=== PATIENT | female | born 1995 | race African-American/Black ===

== ENCOUNTER 2016-10-22 19:50 | Outpatient (CLI) | payer MEDICAID, OTHER ==
[~2016-10-22] VITALS: Ht 160 cm; Wt 85.7 kg
[2016-10-22 20:13] VITALS: BP 139/85
[2016-10-22] MEDS ORDERED: FERR-84 PO (20:50)
[2016-10-22] MEDS ORDERED: PREN1TAB19 PO (20:50)
--- NOTE | 2016-10-23 07:53 | Physician Query-Final Dx ---
ARIN SEGURA 10/23/16 0753: Clinic Account Progress/Dx Physician Query: Please give diagnosis Date of Service Oct 22, 2016 at 19:50 CELSO PINEDA DO 10/26/16 0800: Clinic Account Progress/Dx DIAGNOSIS: Diagnosis 39 week iup Pelvic pressure ARIN SEGURA Oct 23, 2016 07:53 CELSO PINEDA DO Oct 26, 2016 08:00
[2016-10-23] MEDS ORDERED: IBUP-1773 PO (13:59)
[2016-10-23] MEDS ORDERED: DOCU-143 PO (13:59)
== END 2016-10-22 21:50 | disposition home or self-care (01) ==
LOC: WSo 19:50 → LDRP 19:50 → WSo 21:50
PROVIDERS: ATTEND Obstetrics & Gynecology
DX: O99.89 Other specified diseases and conditions complicating pregnancy, childbirth and the puerperium (principal); R10.2 Pelvic and perineal pain; Z3A.39 39 weeks gestation of pregnancy
CPT/HCPCS: 99213

== ENCOUNTER 2016-10-23 05:32 | Inpatient (IN) | payer MEDICAID ==
[~2016-10-23] VITALS: Ht 160 cm; Wt 84.8 kg
[2016-10-23] VITALS (21 sets, daily range): BP systolic 119–157; BP diastolic 65–93
[~2016-10-23 05:32] MED LIST: FERR-84 PO; PREN1TAB19 PO
[2016-10-23] MEDS ORDERED: D5 LR IV SOLUTION 1,000 ML IV ONE (07:39)
[2016-10-23] MEDS ORDERED: MINERAL OIL CONCENTRATE 99.9% 15 ML UDC TOP PRN (07:45)
[2016-10-23] MEDS: D5 LR IV SOLUTION 1,000 ML IV SCH ×2 (07:50→13:11)
[2016-10-23 08:20] LABS: BASOPHILS % (AUTO) 0 % (0-10); EOSINOPHILS % (AUTO) 0 % (0-10); LYMPHOCYTES # (AUTO) 0.9 X 10^3 (1.0-4.0); LYMPHOCYTES % (AUTO) 9 % (12-44); MEAN CORPUSCULAR HEMOGLOBIN 28 PG (25-34); MEAN CORPUSCULAR HGB CONC 33 G/DL (32-36); MEAN CORPUSCULAR VOLUME 85 FL (80-99); MEAN PLATELET VOLUME 12.8 FL (7.4-10.4); MONOCYTES # (AUTO) 0.5 X 10^3 (0.0-1.0); MONOCYTES % (AUTO) 4 % (0-12); NEUTROPHILS # (AUTO) 8.7 X 10^3 (1.8-7.8); NEUTROPHILS % (AUTO) 86 % (42-75); PLATELET COUNT 195 10^3/uL (130-400); RED BLOOD COUNT 4.41 10^6/uL (4.35-5.85); RED CELL DISTRIBUTION WIDTH 13.3 % (10.0-14.5); WHITE BLOOD COUNT 10.2 10^3/uL (4.3-11.0)
[2016-10-23] MEDS ORDERED: SUFENTA 0.6MCG/ML BUPIVA 0.125 100 ML ONE (08:59)
[2016-10-23] MEDS ORDERED: fentaNYL INJECTION 100 MCG/2 ML AMP ONE (09:10)
[2016-10-23] MEDS ORDERED: LIDOCAINE PF 2% 10 ML (XYLOCAINE) AMP ONE (09:11)
[2016-10-23] MEDS ORDERED: BUPIVACAINE 0.25% 30 ML (SENSORCAINE) VIAL ONE (09:11)
--- NOTE | 2016-10-23 09:37 | History & Physical-OB ---
OB - Chief Complaint & HPI Date Date of Admission: Date of Admission: Oct 23, 2016 at 07:05 Chief Complaint/History OB-Reason for Admission/Chief: Onset of Labor Hx : 1 Hx Para: 0 Expected Date of Delivery: Oct 25, 2016 Gestational Age in Weeks: 39 Gestational Age in Days: 5 Other reason for admission: 21 y/o G1 @ 39w5d L=13 here with ctx. Was in last night for bleeding/ctx and no cervical change made, d/c home by Dr. Adame (1/70% at that time with no change). This AM, 2/100% on presentation with BBOW. Desires epidural. Fetus active, no LOF. c/b h/o chlamydia but neg in and anemia (10.4) on iron. Otherwise uncomplicated. History of Labs B+ Antibody neg RI Hep B/C neg/neg RPR NR HIV neg GC/CT neg/neg (x2, once in first trim and once in third) TSH normal Declined genetic screening GBS neg Allergies and Home Medications Allergies Coded Allergies: Penicillins (Verified Allergy, Unknown, 10/23/16) amoxicillin (Verified Allergy, Unknown, 10/23/16) ceftriaxone (Verified Allergy, Unknown, 10/23/16) Home Medications Ferrous Sulfate 325 Mg Tablet, 325 MG PO DAILY, (Reported) Vit/Iron Fumarate/FA 1 Each Tablet, 1 EACH PO DAILY, (Reported) OB - History Hx of Present Care: Yes Ultrasounds: Normal mid trimester US Obstetrical Complications: Other (anemia 10.1 on iron) Medical Complications: Other (h/o chlamydia as above) Information Induced Hypertension: No Maternal Gestational Diabetes: No Hemorrhage: No Obstetrical History Hx : 1 Hx Para: 0 Patient Past Medical History see above Social History/Family History HIV/AIDS: No Recent Infectious Disease Expo: No Sexually Transmitted Disease: No Alcohol Use: Denies Use Recreational Drug Use: No Smoking Cessation: Former smoker 2nd Hand Smoke Exposure: No Immunizations Hepatitis A: No Hepatitis B: No Tetanus Booster (TDap): Less than 5yrs (08/26/16) Rubella: immune RPR/VDRL: Negative GBS Status: Negative HBsAG: Negative OB - Admission Exam Physical Exam Vitals: see nursing documentation HEENT: NCAT Heart: Rhythm Normal Lungs: Clear Abdomen: Gravid Extremities: Normal Reflexes: Normal Cervical Dilatation: 4cm Effacement: 100% Station: -2 Membranes: Ruptured Amniotic Fluid: Clear Heart Rate: 140's Accelerations: Accelerations Present Short Term Variability: Present 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 Variability: Average (6-25) Contractions on Admission: 6-10 Minutes Apart Labs Laboratory Tests Test 10/23/16 08:10 Range/Units White Blood Count 10.2 4.3-11.0 10^3/uL Red Blood Count 4.41 4.35-5.85 10^6/uL Hemoglobin 12.3 11.5-16.0 G/DL Hematocrit 38 35-52 % Mean Corpuscular Volume 85 80-99 FL Mean Corpuscular Hemoglobin 28 25-34 PG Mean Corpuscular Hemoglobin Concent 33 32-36 G/DL Red Cell Distribution Width 13.3 10.0-14.5 % Platelet Count 195 130-400 10^3/uL Mean Platelet Volume 12.8 H 7.4-10.4 FL Neutrophils (%) (Auto) 86 H 42-75 % Lymphocytes (%) (Auto) 9 L 12-44 % Monocytes (%) (Auto) 4 0-12 % Eosinophils (%) (Auto) 0 0-10 % Basophils (%) (Auto) 0 0-10 % Neutrophils # (Auto) 8.7 H 1.8-7.8 X 10^3 Lymphocytes # (Auto) 0.9 L 1.0-4.0 X 10^3 Monocytes # (Auto) 0.5 0.0-1.0 X 10^3 Eosinophils # (Auto) 0.0 0.0-0.3 10^3/uL Basophils # (Auto) 0.0 0.0-0.1 10^3/uL OB - Assessment/Plan/Diagnosis Plan Other Plan 21 y/o G1 @ 39w5d by L=13 with active labor, GBS neg H/o chlamydia outside of , neg on intake Rh+ RI Expectant management AROM clear ASVD Peds BRITANY Morejon MD Oct 23, 2016 09:37
[2016-10-23] MEDS ORDERED: LACTATED RINGERS 1,000 ML IV SCH (09:38)
[2016-10-23] MEDS ORDERED: ONDANSETRON 4 MG/2 ML (SDV) Z0FRAN IV PRN (09:45)
[2016-10-23] MEDS ORDERED: EPIDURAL (SUFENTA 0.6MCG/ML BUPIVA 0.125%) 100 ML BAG EPI PRN (09:45)
[2016-10-23] MEDS ORDERED: diphenhydrAMINE 50 MG/ML INJ (BENADRYL) IV PRN (09:45)
[2016-10-23] MEDS ORDERED: NALOXONE 0.4 MG/ML 1 ML (NARCAN) VIAL IV PRN (09:45)
[2016-10-23 10:33] LABS: BILIRUBIN,URINE NEGATIVE (NEGATIVE); KETONES,URINE NEGATIVE (NEGATIVE); LEUKOCYTE ESTERASE ,URINE NEGATIVE (NEGATIVE); NITRITE,URINE NEGATIVE (NEGATIVE); PH,URINE 7 (5-9); PROTEIN,URINE NEGATIVE (NEGATIVE); UROBILINOGEN,URINE NORMAL (NORMAL)
[2016-10-23 10:43] LABS: WBC,URINE 0-2 /HPF
[2016-10-23] MEDS ORDERED: OXYTOCIN/NORMAL SALINE 500 ML IV SCH ×2 (11:47→14:12)
[2016-10-23] MEDS ORDERED: LIDOCAINE/EPI 1%-1:200,000 (XYLOCAINE) 30 ML VIAL ONE (11:50)
--- NOTE | 2016-10-23 13:56 | OB Labor & Delivery Record ---
Vag Delivery Note Vag Delivery Note Date of Delivery: 10/23/16 Preoperative Diagnosis: Pamela Barajas is a 21 y/o G1 @ 39w5d with active labor, GBS neg Postoperative Diagnosis: Same Surgeon: Britany Yun MD Anesthesia: Epidural Delivery Type: Spontaneous vaginal delivery Findings: Viable female , apgars 9/9, weight 6lb4oz Lacerations: right periclitoral abrasion, repaired Intact placenta with 3 vessel cord. Nuchal cord x 2, no body cord or shoulder dystocia Estimated Blood Loss: 300 ml Complications: None Condition: Stable Description of Procedure: The patient is a 21 y/o G1 @ 39w5d who presented in active labor. She was admitted and informed consent was obtained. Her labor course was remarkable for AROM with clear fluid, epidural for analgesia, and pitocin for augmentation of labor. The fetus was noted to be in occiput posterior position at 4-5cm and position changes were utilized t rotate the fetus which were successful. She progressed to complete dilatation and began to push. She was then set up for delivery. The infant's head was delivered atraumatically in the occiput anterior position. The shoulders and remainder of the infant's body were then delivered without difficulty. The was placed on her mother's chest crying vigorously. The cord was doubly clamped and cut after a pause of 30-60 seconds. An intact placenta with 3-vessel cord delivered via Marc and there was found to be minimal bleeding. Vigorous fundal massage was performed and the fundus was found to be firm. IV oxytocin was given. Examination of the vagina and perineum revealed a small right sided periclitoral abrasion repaired in the usual fashion with 4-0 vicryl suture. Following the repair, sponge, instrument and needle counts were correct. Mom and baby were both in stable condition in the labor suite. Vitals - Labs Labs Laboratory Tests 10/23/16 06:00: Urine Color YELLOW, Urine Clarity CLEAR, Urine pH 7, Urine Specific [place] 1.005L, Urine Protein NEGATIVE, Urine Glucose (UA) NEGATIVE, Urine Ketones NEGATIVE, Urine Nitrite NEGATIVE, Urine Bilirubin NEGATIVE, Urine Urobilinogen NORMAL, Urine Leukocyte Esterase NEGATIVE, Urine RBC (Auto) 2+H, Urine RBC RARE , Urine WBC 0-2, Urine Squamous Epithelial Cells 5-10, Urine Crystals NONE, Urine Bacteria NEGATIVE, Urine Casts NONE, Urine Mucus NEGATIVE, Urine Culture Indicated NO 10/23/16 08:10: White Blood Count 10.2, Red Blood Count 4.41, Hemoglobin 12.3, Hematocrit 38, Mean Corpuscular Volume 85, Mean Corpuscular Hemoglobin 28, Mean Corpuscular Hemoglobin Concent 33, Red Cell Distribution Width 13.3, Platelet Count 195, Mean Platelet Volume 12.8H, Neutrophils (%) (Auto) 86H, Lymphocytes (%) (Auto) 9L, Monocytes (%) (Auto) 4, Eosinophils (%) (Auto) 0, Basophils (%) (Auto) 0, Neutrophils # (Auto) 8.7H, Lymphocytes # (Auto) 0.9L, Monocytes # (Auto) 0.5, Eosinophils # (Auto) 0.0, Basophils # (Auto) 0.0 BRITANY YUN MD Oct 23, 2016 13:56
[2016-10-23] MEDS ORDERED: IBUP-1773 PO (13:59)
[2016-10-23] MEDS ORDERED: DOCU-143 PO (13:59)
[2016-10-23] MEDS ORDERED: CATHETER FLUSH 10 ML SYR IV SCH ×2 (14:00→22:00)
--- NOTE | 2016-10-23 14:00 | Discharge Inst-Women's Service ---
Discharge Inst-Women's Serv Depart Medication/Instructions New, Converted or Re-Newed RX: RX on Chart Final Diagnosis Active labor, TIUP, Consults/Follow Up Additional Follow Up: Yes Orders/Referrals [address] Garcia Activity Activity: Activity as Tolerated Driving Instructions: You May Drive NO SMOKING: NO SMOKING Nothing Inside Vagina: No Douching, No [place], No Tampons Diet Discharge Diet: No Restrictions Symptoms to Report to : Bleeding Excessive, Pain Increased, Fever Over 101 Degrees F, Pain/Pressure in Chest, Vaginal Bleeding Increase, Dizziness/Fainting , Nausea/Vomiting, Shortness of Breath For Any Problems or Questions: Contact Your Physician BRITANY GARCIA MD Oct 23, 2016 14:00
[2016-10-23] MEDS ORDERED: BENZOCAINE/MENTHOL (DERMOPLAST) 56 ML CAN TP PRN (14:15)
[2016-10-23] MEDS ORDERED: WITCH HAZEL(TUCKS) 40 EA JAR TOP PRN (14:15)
[2016-10-23] MEDS ORDERED: MEASLES,MUMPS,RUBELLA 1 EA INJ SQ ONE (14:15)
[2016-10-23] MEDS: IBUPROFEN 600 MG (MOTRIN) TAB PO SCH ×2 (16:33→21:47)
[2016-10-23] MEDS: DOCUSATE SODIUM 100 MG (COLACE) CAP PO SCH (21:47)
[2016-10-24] VITALS: BP 118/69
[2016-10-24 04:34] VITALS: BP 105/67
[2016-10-24] MEDS: IBUPROFEN 600 MG (MOTRIN) TAB PO SCH ×3 (04:49→18:15)
[2016-10-24 05:54] LABS: BASOPHILS % (AUTO) 0 % (0-10); EOSINOPHILS % (AUTO) 0 % (0-10); LYMPHOCYTES % (AUTO) 16 % (12-44); MEAN CORPUSCULAR HEMOGLOBIN 28 PG (25-34); MEAN CORPUSCULAR HGB CONC 33 G/DL (32-36); MEAN CORPUSCULAR VOLUME 86 FL (80-99); MEAN PLATELET VOLUME 12.8 FL (7.4-10.4); MONOCYTES # (AUTO) 1.1 X 10^3 (0.0-1.0); MONOCYTES % (AUTO) 9 % (0-12); NEUTROPHILS # (AUTO) 9.6 X 10^3 (1.8-7.8); NEUTROPHILS % (AUTO) 76 % (42-75); PLATELET COUNT 168 10^3/uL (130-400); RED BLOOD COUNT 3.92 10^6/uL (4.35-5.85); RED CELL DISTRIBUTION WIDTH 13.3 % (10.0-14.5); WHITE BLOOD COUNT 12.7 10^3/uL (4.3-11.0)
[2016-10-24] MEDS ORDERED: PRENATAL VITAMIN 1 EA TAB PO SCH (07:00)
[2016-10-24 08:25] VITALS: BP 133/78
--- NOTE | 2016-10-24 08:31 | Postpartum Progress Note ---
Note Note Day # 1 Subjective: Patient is without complaints. Ambulating, voiding. Tolerating a regular diet without nausea or vomiting. Normal lochia. Pain is well controlled with oral pain medications. Breast feeding. Thinks she would like to dc later tonight. Objective: VS - Last 72 Hours, by Label 10/23/16 10/23/16 10/23/16 10/23/16 05:58 08:00 09:30 10:00 Temp 98.6 98.1 Pulse 104 100 105 Resp 18 20 20 B/P (MAP) 136/81 138/91 146/78 O2 Delivery Room Air 10/23/16 10/23/16 10/23/16 10/23/16 10:30 11:00 11:30 12:00 Pulse 90 106 104 Resp 20 20 20 20 B/P (MAP) 134/82 127/73 128/73 10/23/16 10/23/16 10/23/16 10/23/16 12:15 12:30 12:45 13:00 Pulse 102 96 106 Resp 20 20 20 20 B/P (MAP) 128/78 134/84 141/85 O2 Delivery Non Rebreather Non Rebreather O2 Flow Rate 15.00 15.00 10/23/16 10/23/16 10/23/16 10/23/16 13:15 13:30 13:39 13:52 Temp 98.7 Pulse 103 111 109 Resp 20 20 18 18 B/P (MAP) 150/93 157/88 148/78 153/77 O2 Delivery Non Rebreather Non Rebreather O2 Flow Rate 15.00 15.00 10/23/16 10/23/16 10/23/16 10/23/16 14:23 14:25 14:38 14:52 Pulse 93 96 96 Resp 18 18 18 18 B/P (MAP) 143/65 151/68 131/78 10/23/16 10/23/16 10/23/16 10/23/16 15:07 15:18 16:33 20:00 Temp 97.9 98.1 97.9 Pulse 107 94 120 77 Resp 18 18 20 18 B/P (MAP) 147/72 136/68 127/77 119/74 Pulse Ox 100 O2 Delivery Room Air 10/23/16 10/24/16 10/24/16 22:20 00:00 04:34 Temp 97.9 98.4 96.8 Pulse 77 94 91 Resp 18 16 16 B/P (MAP) 119/74 118/69 105/67 Pulse Ox 100 94 97 O2 Delivery Room Air Room Air Room Air Physical Exam: General - Alert and oriented, no apparent distress Abdomen - Soft, appropriately tender to palpation, non-distended, fundus firm at umbilicus Extremities - no edema, negative Tom's bilaterally Laboratory Tests Test 10/24/16 05:37 Range/Units White Blood Count 12.7 H 4.3-11.0 10^3/uL Red Blood Count 3.92 L 4.35-5.85 10^6/uL Hemoglobin 11.1 L 11.5-16.0 G/DL Hematocrit 34 L 35-52 % Mean Corpuscular Volume 86 80-99 FL Mean Corpuscular Hemoglobin 28 25-34 PG Mean Corpuscular Hemoglobin Concent 33 32-36 G/DL Red Cell Distribution Width 13.3 10.0-14.5 % Platelet Count 168 130-400 10^3/uL Mean Platelet Volume 12.8 H 7.4-10.4 FL Neutrophils (%) (Auto) 76 H 42-75 % Lymphocytes (%) (Auto) 16 12-44 % Monocytes (%) (Auto) 9 0-12 % Eosinophils (%) (Auto) 0 0-10 % Basophils (%) (Auto) 0 0-10 % Neutrophils # (Auto) 9.6 H 1.8-7.8 X 10^3 Lymphocytes # (Auto) 2.0 1.0-4.0 X 10^3 Monocytes # (Auto) 1.1 H 0.0-1.0 X 10^3 Eosinophils # (Auto) 0.0 0.0-0.3 10^3/uL Basophils # (Auto) 0.0 0.0-0.1 10^3/uL Assessment: 21 y/o post- day # 1, status post spontaneous vaginal delivery. Recovering well, hemodynamically stable Rh+ BPs elevated peripartum but normalized since delivery, no si/sx pre-eclampsia Plan: Routine care. Encourage breast feeding. Encourage ambulation. Plan for discharge today vs tomorrow. Vitals - Labs Vital Signs - I&O Vital Signs Date Time Temp Pulse Resp B/P (MAP) Pulse Ox O2 Delivery O2 Flow Rate FiO2 10/24/16 04:34 96.8 91 16 105/67 97 Room Air 10/24/16 00:00 98.4 94 16 118/69 94 Room Air 10/23/16 22:20 97.9 77 18 119/74 100 Room Air 10/23/16 20:00 97.9 77 18 119/74 100 Room Air 10/23/16 16:33 98.1 120 20 127/77 10/23/16 15:18 97.9 94 18 136/68 10/23/16 15:07 107 18 147/72 10/23/16 14:52 96 18 131/78 10/23/16 14:38 96 18 151/68 10/23/16 14:25 18 10/23/16 14:23 93 18 143/65 10/23/16 13:52 109 18 153/77 10/23/16 13:39 98.7 111 18 148/78 10/23/16 13:30 20 157/88 Non Rebreather 15.00 10/23/16 13:15 103 20 150/93 Non Rebreather 15.00 10/23/16 13:00 106 20 141/85 Non Rebreather 15.00 10/23/16 12:45 96 20 134/84 Non Rebreather 15.00 10/23/16 12:30 102 20 128/78 10/23/16 12:15 20 10/23/16 12:00 20 10/23/16 11:30 104 20 128/73 10/23/16 11:00 106 20 127/73 10/23/16 10:30 90 20 134/82 10/23/16 10:00 105 20 146/78 10/23/16 09:30 100 20 138/91 I & O 10/24/16 07:00 Intake Total 2175 ml Balance 2175 ml Labs Laboratory Tests 10/24/16 05:37: White Blood Count 12.7H, Red Blood Count 3.92L, Hemoglobin 11.1L, Hematocrit 34L , Mean Corpuscular Volume 86, Mean Corpuscular Hemoglobin 28, Mean Corpuscular Hemoglobin Concent 33, Red Cell Distribution Width 13.3, Platelet Count 168, Mean Platelet Volume 12.8H, Neutrophils (%) (Auto) 76H, Lymphocytes (%) (Auto) 16, Monocytes (%) (Auto) 9, Eosinophils (%) (Auto) 0, Basophils (%) (Auto) 0, Neutrophils # (Auto) 9.6H, Lymphocytes # (Auto) 2.0, Monocytes # (Auto) 1.1H, Eosinophils # (Auto) 0.0, Basophils # (Auto) 0.0 BRITANY YNU MD Oct 24, 2016 08:31
[2016-10-24] MEDS: DOCUSATE SODIUM 100 MG (COLACE) CAP PO SCH (08:51)
[2016-10-24] MEDS ORDERED: FERROUS SULF 325 MG (IRON) TAB PO SCH (09:00)
--- NOTE | 2016-10-24 09:44 | Anesthesia-Regional Post-Op ---
Regional Patient Condition Mental Status: Alert, Oriented x3 Circulation: Same as Pre-Op Headache: Absent Sensation: Full Recovery Motor Block: Absent Post Op Complications Complications None Follow Up Care/Instructions Patient Instructions None needed. Anesthesia/Patient Condition Patient is doing well, no complaints, stable vital signs, no apparent adverse anesthesia problems. No complications reported per nursing. NOMAN FELDMAN CRNA Oct 24, 2016 09:44
[2016-10-24 11:36] VITALS: BP 122/69
[2016-10-24 18:14] VITALS: BP 112/72
== END 2016-10-24 19:15 | disposition home or self-care (01) | DRG 775 ==
LOC: WSo 05:32 → LDRP 05:33 → WSo 07:05 → LDRP 07:05
PROVIDERS: ADMIT Obstetrics & Gynecology; ATTEND Obstetrics & Gynecology
PROC: 10E0XZZ Delivery of Products of Conception, External Approach (ICD-10-PCS; principal; 2016-10-23)
PROC: 0HQ9XZZ Repair Perineum Skin, External Approach (ICD-10-PCS; 2016-10-23)
DX: O99.013 Anemia complicating pregnancy, third trimester (principal); D64.9 Anemia, unspecified; O70.0 First degree perineal laceration during delivery; O69.81X0 Labor and delivery complicated by cord around neck, without compression, not applicable or unspecified; Z3A.39 39 weeks gestation of pregnancy; Z37.0 Single live birth
CPT/HCPCS: 36415; 81000; 85025; 86850; 86900; 86901; 99212